=== PATIENT | female | born 1990 | race Caucasian/White ===

== ENCOUNTER → 2022-12-21 13:36 | Outpatient (CLI) | payer OTHER, SELFPAY ==
--- NOTE | ~2022-12-21 | US_ITS ---
EXAMINATION: US OB <= 14 weeks fetus INDICATION: N91.0 - Primary amenorrhea TECHNIQUE: Sonography of the pelvis was performed by transabdominal techniques. COMPARISON: None. RESULT: Uterus: 10.1 x 5.7 x 5.6 cm. Anteverted. Homogenous myometrium. Intrauterine gestational sac: Single present. Yolk sac: Present, not directly measured. Embryo: Single present. [place] rump length: 2.1 cm, corresponding gestational age 8 weeks, 5 days. G estational heart rate: 176 bpm. Subgestational hematoma: Absent . Right ovary: Not visualized . No adnexal mass. Left ovary: Not visualized . No adnexal mass. Pelvis free fluid: None. IMPRESSION: Single, live intrauterine gestation. Estimated Gestational Age: 8 weeks, 5 days by crown rump length. CYRUS by ultrasound 07/28/2023. Reviewed, dictated and finalized at location K. IMPRESSION: Single, live intrauterine gestation. Estimated Gestational Age: 8 weeks, 5 days by crown rump length. CYRUS by ultras ound 07/28/2023.
== END ==
PROVIDERS: PCP Internal Medicine; Visit Provider Registered Nurse
DX: Z34.91 Encounter for supervision of normal pregnancy, unspecified, first trimester (principal); Z3A.08 8 weeks gestation of pregnancy
CPT/HCPCS: 76801

== ENCOUNTER 2023-07-14 20:41 | Outpatient (CLI) | payer OTHER, SELFPAY ==
[2023-07-14 20:54] VITALS: BP 130/87; PULSE 78
[2023-07-14 21:01] VITALS: BP 135/76; PULSE 68
[2023-07-14 21:14] VITALS: BP 130/87; PULSE 75
== END 2023-07-14 21:20 | disposition home or self-care (01) ==
LOC: ANHOBOP 20:45 → ANHLDR 20:45
PROVIDERS: PCP Internal Medicine; Visit Provider Obstetrics & Gynecology
DX: O36.8190 Decreased fetal movements, unspecified trimester, not applicable or unspecified (principal); Z3A.00 Weeks of gestation of pregnancy not specified
CPT/HCPCS: 59025; 99199

== ENCOUNTER 2023-07-28 21:40 | Inpatient (IN) | payer OTHER, SELFPAY ==
[2023-07-29] VITALS (199 sets, daily range): BP systolic 90–158; BP diastolic 38–106; PULSE 58–111; RESP 18; TEMP 36.6–37.7; O2SAT 85–100; BMI 37.8
--- NOTE | 2023-07-29 00:43 | OBADM ---
This patient, Alana Marquez, admitted to the OB room Labor/Delivery/Recovery 105 for observation. Patient/family oriented to hospital policies and general routines including ID bracelet, bed and alarms, visiting hours, pain management, procedures, bathroom and other care routines, personal items, smoking policy, room service/diet, and visiting hours. Patient/Family are encouraged to report perceived risks to care and to ask questions if they do not understand what they are told or what they should do.
--- NOTE | 2023-07-29 04:02 | LDADM ---
This patient, Alana Marquez, was admitted to Labor/Delivery/Recovery 105 on 07/28/23 at 21:40. Plans for labor, pain management and were discussed with patient. Patient/family oriented to hospital policies and general routines including ID bracelet, bed and alarms, visiting hours, pain management, procedures, bathroom and other care routines, personal items, smoking policy, room service/diet and guest tray routines, security routines, and visiting hours. Patient/Family are encouraged to report perceived risks to care and to ask questions if they do not understand what they are told or what they should do. See OBIX for further documentation.
[2023-07-29] MEDS: LACTATED RINGERS 1,000 ML 125 ML IV CONT ×3 (04:15→10:32)
[2023-07-29] MEDS: AMPICILLIN 2 GM/NS 100 ML 2 GM/100 ML BAG IVPB (04:22)
[2023-07-29 04:39] LABS: Basophils Absolute Auto 0.1 K/mm3 (0.0-0.1); Basophils Percent Auto 0.3 % (0.2-1.2); Eosinophils Percent Auto 0.1 % (0-4.4); Hemoglobin 14.4 g/dL (12.0-15.0); Immature Granulocyte Absolute 0.09 K/mm3 (0.00-0.031); Immature Granulocyte Percent A 0.5 % (0-0.5); Lymphocytes Absolute Auto 2.01 K/mm3 (0.9-3.2); Lymphocytes Percent Auto 11.4 % (18.3-44.2); Mean Corpuscular HGB Conc 34.3 g/dl (32-36); Mean Corpuscular Hemoglobin 29.9 pg (26-34); Mean Corpuscular Volume 87.1 fl (80-100); Mean Platelet Volume 12.1 fl (7.4-10.4); Monocytes Absolute Auto 0.4 K/mm3 (0.1-0.6); Monocytes Percent Auto 2.4 % (2.6-8.5); Neutrophils Percent Auto 85.3 % (45.5-73.1); Platelet Count Result 247 k/mm3 (150-375); Red Blood Count 4.82 M/mm3 (4.2-5.4); Red Cell Distribution Width 13.1 % (11.5-14.5); White Blood Count 17.6 K/mm3 (4.5-10.0)
--- NOTE | 2023-07-29 05:01 | P.PNAN_ITS ---
Anes - Eval Pre Procedure Procedure: Labor epidural Date/Time: 07/29/23 05:01 Surgeon: Sourav Weber Preop Diagnosis: Abdominal pain with contractions Pre Op Diagnosis: Contractions Patient Data Age: 33 Gender: F Height: 1.63 m Weight: 100 kg Last Vital Signs Temp 98.1 F 07/29/23 02:01 Pulse 87 07/29/23 04:40 BP 138/106 H 07/29/23 04:40 Allergies Allergy/AdvReac Type Severity Reaction Status Date / Time No Known Allergies Allergy Verified 12/20/22 14:05 Home Medications Medication Instructions Recorded Confirmed Type ondansetron 4 mg disintegrating 4 mg PO Q8H 12/20/22 History tablet vitamins-iron fumarate 65 1 tablet PO DAILY 12/20/22 History mg iron-folic acid 1 mg tablet aspirin 81 mg tablet 81 mg PO DAILY 06/29/23 06/29/23 History : gestational age HCG: positive Patient hx anesthesia problems: none Family hx anesthesia problems: none Results Review: All pre-operative results and documents have been reviewed as part of the pre- operative evaluation. [facility] Past Medical History Medical History Amenorrhea, primary Obesity Seasonal allergies Surgical History Surgical History [place] teeth removed Family History Family History Grandparent Diabetes mellitus Father Hypertension Heart disease Thyroid disorder Social History Social History Smoking status: Never smoker Second hand tobacco smoke exposure: No Alcohol intake: former Substance use: never Substance use type: does not use Do You Feel Safe in your Home?: Yes Lack of Transportation: No Lack of Food: Never True Current Housing: I Have Housing Concerned About Future Housing: No Difficulty Paying Gas/Electric Bills: No Difficulty Paying for Meds: No Currently Unemployed: No Education: Master's Degree or Higher Difficulty w/ Childcare or Family Care: No Living arrangements: with family Occupation/Education: occupation Additional occupation/education comments: [employer] Gender identity (if verbalized by the patient): Female Sexual Orientation (if Verbalized by the Patient): Straight or Heterosexual Spiritual care concerns: No Exam Day of Procedure 07/29/23 05:01 Patient weight: obese Heart: regular rate and rhythm
[2023-07-29] MEDS: PHENYLEPHRINE 1,000 MCG/10 ML SYRINGE 100 MCG IV PUSH (06:20)
[2023-07-29] MEDS: ONDANSETRON INJ 4 MG/2 ML VIAL IV PUSH (06:57)
[2023-07-29] MEDS: AMPICILLIN 1 GM/NS 50 ML 1 GM/50 ML BAG IVPB ×2 (08:34→12:46)
--- NOTE | 2023-07-29 08:55 | PM.IMHP ---
H&P: HPI History of Present Illness Date/Time: 07/29/23 08:55 Chief Complaint: Contractions Narrative: 33 y/o G1 at 40 2/7 weeks who presented with contractions. Had SROM at 0400. Now comfortable with epidural. Receiving ampicillin for GBS colonization. Review of Systems Review of Systems: All systems reviewed & are unremarkable except as noted in HPI and below PMFSH Past Medical History Medical History Amenorrhea, primary Obesity Seasonal allergies Surgical History Surgical History [place] teeth removed Family History Family History Grandparent Diabetes mellitus Father Hypertension Heart disease Thyroid disorder Social History Social History Smoking status: Never smoker Second hand tobacco smoke exposure: No Alcohol intake: former Substance use: never Substance use type: does not use Do You Feel Safe in your Home?: Yes Lack of Transportation: No Lack of Food: Never True Current Housing: I Have Housing Concerned About Future Housing: No Difficulty Paying Gas/Electric Bills: No Difficulty Paying for Meds: No Currently Unemployed: No Education: Master's Degree or Higher Difficulty w/ Childcare or Family Care: No Living arrangements: with family Occupation/Education: occupation Additional occupation/education comments: [employer] Gender identity (if verbalized by the patient): Female Sexual Orientation (if Verbalized by the Patient): Straight or Heterosexual Spiritual care concerns: No Meds Home Medications and Allergies Home Medications Medication Instructions Recorded Confirmed Type ondansetron 4 mg disintegrating 4 mg PO Q8H 12/20/22 History tablet vitamins-iron fumarate 65 1 tablet PO DAILY 12/20/22 History mg iron-folic acid 1 mg tablet aspirin 81 mg tablet 81 mg PO DAILY 06/29/23 06/29/23 History Allergies Allergy/AdvReac Type Severity Reaction Status Date / Time No Known Allergies Allergy Verified 12/20/22 14:05 Vital Signs Vital Signs - 24 hr 07/29/23 02:01 07/29/23 04:40 07/29/23 05:02 Temperature 36.7 C Pulse Rate 79 87 Blood Pressure 141/75 H 138/106 H Pulse Oximetry 100 07/29/23 05:03 07/29/23 05:07 07/29/23 05:10 Temperature Pulse Rate 72 90 Blood Pressure 147/78 H 141/86 H Pulse Oximetry 100 07/29/23 05:12 07/29/23 05:13 07/29/23 05:16 Temperature Pulse Rate 85 87 Blood Pressure 137/87 158/76 H Pulse Oximetry 100 100 07/29/23 05:18 07/29/23 05:19 07/29/23 05:21 Temperature Pulse Rate 82 76 Blood Pressure 134/73 119/82 Pulse Oximetry 100 07/29/23 05:23 07/29/23 05:24 07/29/23 05:26 Temperature Pulse Rate 72 77 Blood Pressure 90/66 L 116/84 Pulse Oximetry 100 07/29/23 05:28 07/29/23 05:30 07/29/23 05:31 Temperature Pulse Rate 71 79 Blood Pressure 132/61 120/76 Pulse Oximetry 100 07/29/23 05:33 07/29/23 05:36 07/29/23 05:38 Temperature Pulse Rate 78 89 Blood Pressure 140/75 117/84 Pulse Oximetry 99 98 07/29/23 05:43 07/29/23 05:47 07/29/23 05:48 Temperature Pulse Rate 86 Blood Pressure 127/73 Pulse Oximetry 97 98 07/29/23 04:20 07/29/23 05:50 07/29/23 05:53 Temperature 36.6 C 36.6 C Pulse Rate Blood Pressure Pulse Oximetry 99 07/29/23 05:58 07/29/23 06:01 07/29/23 06:03 Temperature Pulse Rate 75 Blood Pressure 105/49 L Pulse Oximetry 95 99 07/29/23 06:08 07/29/23 06:13 07/29/23 06:16 Temperature Pulse Rate 85 Blood Pressure 91/44 L Pulse Oximetry 97 98 07/29/23 06:18 07/29/23 06:20 07/29/23 06:22 Temperature Pulse Rate 75 69 Blood Pressure 101/50 L 99/60 L Pulse Oximetry 100 07/29/23 06:23 07/29/23 06:28 07/28
[2023-07-29] MEDS: OXYTOCIN 30 UNITS/NS 500 ML 30 UNITS/500 ML BAG 6 UNITS IV CONT (09:21)
--- NOTE | 2023-07-29 12:37 | PM.OBPNLAB ---
Pain Control Date/time seen: 07/29/23 12:37 Comfortable with epidural. AVSS NST good variability. TOCO: contractions every 2-3 min Cervix 9/100/0 Continue labor.
--- NOTE | 2023-07-29 14:18 | P.PCNOB_ITS ---
OB - Vaginal Delivery Note Procedure Delivery date: 07/29/23 Events: Positive Group B Strep (GBS) Induction method: None Delivery augmentation: Pitocin Delivery monitor: External FHT, External Uterine and Internal Uterine Route of delivery: Episiotomy description: None Laceration Description: None Specimen: Yes (cord blood) Quantitative Blood Loss (ml): 120 Anesthesia type: Epidural Disposition: PACU Complications: None Narrative: 33 y/o G1 at 40 2/7 weeks gestation who presented to the hospital with contractions. She had SROM with clear fluid. She was given ampicillin for GBS colonization. She received an epidural. Oxytocin was administered intravenously for labor augmentation. Her labor progressed and her cervix dilated completely. She pushed with good effort and delivered the infant's head to the perineum, followed by the body. Meconium stained fluid followed the delivery. The nose and mouth were bulb suctioned. After a delay, the cord was clamped and cut. The was handed off the field. Cord blood was collected. The placenta delivered spontaneously and was grossly normal in appearance. The usual 3 vessel cord was noted. There were no lacerations. Needle and instrument counts were correct. The patient was taken to recovery room in stable condition. The infant went to the nursery in stable condition. I was present and scrubbed for the entire delivery. [place] Baby Date of : 07/29/23 Time of : 14:04 Weeks of gestation at delivery: 40 Infant gender: Female presentation: vertex position: Left Occiput Anterior Placenta delivery description: Spontaneous Cord Vessel Description: 3 Vessels score one minute: 8 score five minutes: 9
--- NOTE | 2023-07-29 14:22 | P.DS_ITS ---
DS: Admitting Diagnosis Discharge Date 07/31/23 Admitting Diagnosis IUP at 40 2/7 weeks Labor GBS colonization DS: Discharge Diagnosis Discharge Diagnosis (1) (normal spontaneous vaginal delivery): Code(s): O80 - Encounter for full-term uncomplicated delivery Status: Acute (2) GBS (group B Streptococcus carrier), +RV culture, currently : Code(s): O99.820 - Streptococcus B carrier state complicating Status: Acute OB - DS: Summary OB Procedures : None OB Procedures Intrapartum: Spontaneous Vag Delivery OB Procedures: : None Peripartum Data Laceration Description: None Episiotomy description: None Time Spent with Patient Time attestation: Total time spent providing and/or coordinating discharge services: Discharge Plan Discharge Attending physician on discharge: Yusuf Mathews Discharging Clinician: Yusuf Mathews Patient Disposition: Home, Self-Care Activity: pelvic rest Diet: regular Discharge Instructions: Call or return if temperature above 100.4? F, increased abdominal pain, increa sed vaginal bleeding or any new problems. Stand Alone Forms: General Discharge Information Follow-up/Referrals: Yusuf Mathews MD [Physician] - 6 Weeks Discharge Medications: New ibuprofen 600 mg tablet 600 mg PO Q6H PRN (Reason: cramps) Qty: 30 0RF Continued vit-iron fum-folic ac 65 mg iron- 1 mg tablet 1 tablet PO DAILY Discontinued ondansetron 4 mg tablet,disintegrating 4 mg PO Q8H Adult Low Dose Aspirin 81 mg Tablet 81 mg PO DAILY Date of admission: 07/28/23 21:40 Primary Care Provider: Petra,Shannen Admitting Provider: Vernon Silva Attending physician on admission: Vernon Silva Condition: Stable
[2023-07-29] MEDS: OXYTOCIN 30 UNITS/NS 500 ML 30 UNITS/500 ML BAG 125 UNITS IV CONT (14:32)
[2023-07-29 16:14] LABS: Rapid Plasma Reagin Non-Reactive (NonReactive)
--- NOTE | 2023-07-29 16:30 | PC.NURSE ---
Patient transferred to post room #280 per wheelchair from labor and delivery. Support person present. Oriented to unit, room, information board, rooming in, admission packet and security measures. Patient verbalizes understanding.
[2023-07-30 00:26] VITALS: BP 134/77; PULSE 67; RESP 18; TEMP 37.2; O2SAT 96
[2023-07-30 05:12] LABS: Hematocrit 37.5 % (37.0-47.0); Hemoglobin 12.1 g/dL (12.0-15.0)
[2023-07-30 07:40] VITALS: BP 115/77; PULSE 58; RESP 18; TEMP 36.6; O2SAT 97
[2023-07-30] MEDS: MULTIVIT/MIN/PREN/FOL AC/IRON TABLET 1 TAB PO (08:41)
[2023-07-30] MEDS: DOCUSATE SODIUM 100 MG CAPSULE PO (08:41)
[2023-07-30] MEDS: POLYSACCHARIDE IRON COMPLEX 150 MG CAPSULE PO (08:41)
--- NOTE | 2023-07-30 08:58 | PM.OBPNVD ---
OB - PN: Subj Subjective Date/time seen: 07/30/23 08:58 Narrative: Pain OK. OB - PN: Obj Data Labs 07/30/23 04:36 Labs: Laboratory Results - last 24 hr 07/29/23 07/30/23 15:02 04:36 Hgb 12.1 Hct 37.5 Blood Type AB Positive Antibody Screen Negative OB - PN A/P Plan Comments: A: PPD#1, doing well. P: Routine care. Exam Psych: Other: AVSS ABD soft, nontender, fundus firm EXT nontender
--- NOTE | 2023-07-30 09:46 | WPDANLDPN2 ---
Anes-Prog Note L&D Date/Time: 07/30/23 09:46 Comfortable throughout: labor and delivery Neuraxial method: epidural Epidural/Spinal procedure site: clean & non-tender Neuro status: Neuro function grossly intact. Cardiovascular status: normal Respiratory status: normal Airway patency: baseline Mental status: baseline Post-Op hydration status: normal Vital Signs: Last Vital Signs Temp 36.6 C 07/30/23 07:40 Pulse 58 L 07/30/23 07:40 Resp 18 07/30/23 07:40 BP 115/77 07/30/23 07:40 Pulse Ox 97 07/30/23 07:40 O2 Del Method Room Air 07/29/23 20:12 Pain score (VAS): 10 I/O: Intake & Output 07/29/23 07/30/23 07/30/23 23:59 07:59 15:59 Output Total 50 Balance -50 Post-procedural complaints: none Patient feedback: Patient satisfied with anesthetic care.
--- NOTE | 2023-07-30 10:48 | PC.NURSE ---
0945 Introductions were made, then consulted with patient to assess needs related to . Mother led the conversation with her?plans to feed?her and the?experience so far. Encouraged understanding of the benefits of skin to skin (demonstrating unwrapping infant and placing upright on her chest), stimulating with massage touch, changing positions to encourage wakefulness, how to watch for early feeding cues, responsive feeding, feeding on demand (aiming for 8-12 times in 24 hours, about every 2-3 hours), milk production, building/maintaining a milk supply, duration of feeding, signs of adequate intake/output and how to record on the feeding sheet. Mother works well with her with encouragement and education. Reviewed positioning and ear, shoulder, hip alignment, supporting the breast to facilitate a deep latch, asymmetrical latch (off-center), leading with the chin with a big, open, wide gape and body close to mother. Infant latched optimally to the both breasts in cross cradle position. Education given to the mother of how to visualize the suckling (with good rocking jaw motion), swallows (dropping of the lower jaw) and how to listen for drinking at the breast (the ka sound). Infant was able to maintain latch without pain to mother protecting the nipple with optimal positioning and latching. Reviewed comfort measures of healing with a warm, wet washcloth to rinse breast, then leave open to air-dry, good handwashing when or touching the breast/nipples to prevent infection. Mother voiced understanding of skin to skin, stimulating with massage touch, responsive feedings, hand expressed colostrum, talking to infant to encourage if it has been 2 -2.5 hours since the start of the last , to call if does not latch, or if there is discomfort with . Resources used for education were facilitated with the visual educational handouts/ tool/mom and baby guide, Resources provided with business card, feeding sheet, name written on the communication board, and the mom/baby guide. Parents voiced understanding of information, demonstrated learning and will call if there is a request for assistance. Reported to the Primary RN.
[2023-07-30 12:46] VITALS: BP 126/71; PULSE 58; RESP 16; TEMP 36.8; O2SAT 99
[2023-07-30 21:18] VITALS: BP 126/79; PULSE 62; RESP 16; TEMP 37; O2SAT 98
[2023-07-31 07:40] VITALS: BP 125/76; PULSE 60; RESP 16; TEMP 36.8; O2SAT 98
--- NOTE | 2023-07-31 08:57 | PM.OBPNVD ---
OB - PN: Subj Subjective Date/time seen: 07/31/23 08:57 Narrative: Pain OK. Would like to go home. OB - PN: Obj Data Labs 07/30/23 04:36 OB - PN A/P Plan Comments: A: PPD#2, doing well. P: Home to f/u 6 weeks. Exam Psych: Other: AVSS ABD soft, nontender, fundus firm EXT nontender
[2023-07-31] MEDS: MULTIVIT/MIN/PREN/FOL AC/IRON TABLET 1 TAB PO (09:34)
[2023-07-31] MEDS: DOCUSATE SODIUM 100 MG CAPSULE PO (09:37)
[2023-08-01 10:39] VITALS: BP 128/80; PULSE 60; RESP 18; TEMP 36.7; O2SAT 99
== END 2023-07-31 11:53 | disposition home or self-care (01) | DRG 807 ==
LOC: ANHLDR 07-29 14:34 → ANHOB2 07-31 09:55 → ANHLDR 08-01 07:57 → ANHOB2 08-01 07:57
PROVIDERS: Admitting Provider Obstetrics & Gynecology; PCP Internal Medicine; Visit Provider Obstetrics & Gynecology
DX: O99.824 Streptococcus B carrier state complicating childbirth (principal); Z37.0 Single live birth; O99.214 Obesity complicating childbirth; Z3A.40 40 weeks gestation of pregnancy
CPT/HCPCS: 36415; 85014; 85018; 85025; 86592; 86850; 86900; 86901; A9270; J0290; J2371; J2405; J2590; J2795; J7120

== ENCOUNTER 2024-12-10 13:14 | Outpatient (CLI) | payer OTHER, SELFPAY ==
--- NOTE | ~2024-12-10 | US_ITS ---
EXAMINATION: US OB <=14 wk fetus w TV DATE: 12/11/2024 17:01 CDT INDICATION: Amenorrhea COMPARISON: None TECHNIQUE: Real-time transabdominal obstetric ultrasound. FINDINGS: 2 para 1 Last menstrual period is given as 10/18/2024. Estimated date of delivery by last menstrual period is 07/25/2025 The uterus measures 11 x 6.1 x 6.1 cm. A gestational sac is identified within the uterus. Adjacent to the gestational sac is an irregular focus of decreased echogenicity measuring 22 x 10 x 1 8 mm consistent with a subchorionic hemorrhage for which short-term follow-up is needed. A pole is identified, with a crown-rump length that measures 1.6 cm, corresponding to an approx imate gestational age of 8 weeks and 0 days. cardiac activity is identified at a rate of 169 bpm. The right ovary is unremarkable in echogenicity and size measuring 3 x 1.9 x 1.8cm. Despite prolonged interrogation, the left ovary was not visualized Estimated date of delivery by ultrasound is 07/22/2025 IMPRESSION: Single intrauterine gestation with an approximate gestational age of 8 weeks and 0 days, with c ardiac activity identified. Small subchorionic hemorrhage is identified for which short-term follow-up is needed. Reviewed, dictated and finalized at location A. IMPRESSION: Single intrauterine gestation with an approximate gestational age of 8 weeks an d 0 days, with cardiac activity identified. Small subchorionic hemorrhage is identified for which short-term follow-up is n eeded.
== END 2024-12-10 13:15 | disposition home or self-care (01) ==
LOC: MICIMG 13:15
PROVIDERS: PCP Internal Medicine; Visit Provider Nurse Practitioner Obstetrics & Gynecology
DX: N91.2 Amenorrhea, unspecified (principal); Z3A.08 8 weeks gestation of pregnancy
CPT/HCPCS: 76801; 76817

== ENCOUNTER 2024-12-29 15:08 | Outpatient (CLI) | payer OTHER, SELFPAY ==
--- NOTE | ~2024-12-29 | US_ITS ---
EXAM/PROCEDURE: US OB transvaginal - 12/29/2024 15:12 CDT HISTORY: 34 years old Female with O36.80X0 - with inconclusive viability, n... COMPARISON: None available. TECHNIQUE: Multiple transvaginal images were obtained. FINdINGS: There is a single, intrauterine gestation without cardiac activity. The crown- rump length is 29 mm. There is no myometrial abnormality. The ovaries appear unremarkable. No significant free fluid is seen. IMPRESSION: Findings diagnostic of failure. Reviewed, dictated and finalized at location A.
== END 2024-12-29 15:09 | disposition home or self-care (01) ==
PROVIDERS: PCP Internal Medicine; Visit Provider Obstetrics & Gynecology
DX: O36.80X0 Pregnancy with inconclusive fetal viability, not applicable or unspecified (principal); Z3A.00 Weeks of gestation of pregnancy not specified
CPT/HCPCS: 76817

== ENCOUNTER 2024-12-30 08:15 | Day surgery (SDC) | payer OTHER, SELFPAY ==
--- OUTSIDE RECORDS SUMMARY | 2024-12-30 08:21 | XMS_ITS | Clinical Summary ---
Author Organization [facility] Address [address] [place] [address] Phone Care Team Providers Care Director Power Name Role Phone Unavailable Primary Care Provider Unavailabl e Allergies No known active allergies Medications APRI 0.15-0.03 mg TabletIndications: Well woman exam with routine gynecological exam,Screening for malignant neoplasm of cervix TAKE 1 TABLET BY MOUTH EVERY DAY 28 Tablet 5 8 Active Active Problems No known active problems Immunizations Immunization Administration Dates Next Due INFLUENZA VACCINE QUADRIVALENT 3 YR UP PF IM Influenza Seasonal Unspecified Formulation IM Family History Medical History Relation Name Comments Heart Disease Father Diabetes Maternal Grandfather Alzheimer's Disease Maternal Grandmother Diabetes Maternal Grandmother Parkinson's Disease Maternal Grandmother Healthy Mother Heart Disease Paternal Grandfather Diabetes Paternal Grandmother Asthma Sister Healthy Sister Breast Cancer Neg Hx Colon Cancer Neg Hx Ovarian Cancer Neg Hx Relation Name Status Comments Father Maternal Grandfather Alive Maternal Grandmother Mother Alive Paternal Grandfather Paternal Grandmother Alive Sister Alive Social History Tobacco Use Types Packs/Day Years Used Date Smoking Tobacco: Never Smokeless Tobacco: Never Alcohol Use Standard Drinks/Week Comments Yes 0 (1 standard drink = 0.6 oz pur e alcohol) socially Comments No Sex and Gender Information Value Date Recorded Sex Assigned at Not on file Legal Sex Female 7:05 PM CDT Gender Identity Not on file Sexual Orientation Not on file Last Filed Vital Signs Vital Sign Reading Time Taken Comments Blood Pressure 130/86 08/26/2017 1:43 PM CDT Pulse - - Temperature - - Respiratory Rate - - Oxygen Saturation - - Inhaled Oxygen Concentration - - Weight 82.9 kg (182 lb 12.8 oz) 08/26/2017 1:43 PM CDT Height 167.6 cm (5' 6) 08/26/2017 1:43 PM CDT Body Mass Index 29.5 08/26/2017 1:43 PM CDT Plan of Treatment Health Maintenance Due Date Last Done Comments HPV VACCINES (1 - 3-dose series) 2005 DTAP/TDAP/TD VACCINES (1 - Tdap) 2009 HEPATITIS B VACCINES (1 of 3 - 19+ 3-dose series) 2009 PAP SMEAR 08/26/2020 08/26/2017, 08/11, 06/13/2016, Additional history exists CERVICAL CANCER SCREENING 08/26/2022 HPV/Cotest (21-29) 08/26/2022 08/26/2017, 0 06/13/2016, 06/24/2015 HPV/Cotest (30-65) 08/26/2022 08/26/2017, 0 06/13/2016, 06/24/2015 INFLUENZA VACCINE (#1) 2024 02/13/2017, 2015 Procedures Procedure Name Priority Date/Time Associated Diagnosis Comments CERV/VAG CYTO SCREEN PAP RLFX HPV Routine 08/26/2017 1:41 PM CDT Well woman exam with routine gynecological exam Screening for malignant neoplasm of cervix from Last 3 Months or Most Recently Relevant to Health Maintenance Results * CERV/VAG CYTOPATH, THIN PREP IMAGR RFLX HPV (08/26/2017 1:41 PM CDT) CLINICAL INFORMATION SEE COMMENT 08/28/2017 2:47 PM CDT [facility] Comment:Oral contraceptives LAST MENSTRUAL PERIOD 08/11/17 08/28/2017 2:47 PM CDT [facility] PREV PAP: 06/13/16 NIL 08/28/2017 2:47 PM CDT [facility] PREV BX: SEE COMMENT 08/28/2017 2:47 PM CDT [facility] Comment:Information not prov ided SOURCE Endocervix 08/28/2017 2:47 PM CDT [facility] ADEQUACY: SEE COMMENT 08/28/2017 2:47 PM CDT [facility] Comment: Satisfactory for evaluation. Endocervical/transformation zone component present. PAP INTERP SEE COMMENT 08/28/2017 2:47 PM CDT [facility] Comment:Negative for intraep ithelial lesion or malignancy. COMMENT SEE COMMENT 08/28/2017 2:47 PM CDT [facility] Comment: This Pap test has been evaluated with computer assisted technology. EXPORT TRAFFIC DEPARTMENT MANAGER: SEE COMMENT 2017 2:47 PM CDT [facility] Comment: KMY, CT(ASCP) CT screening location: [place] [address] [place] [address] EXPLANATORY NOTE SEE COMMENT 018 2:47 PM CDT [facility] Comment: EXPLANATORY NOTE: The Pap is a screening test for cervical cancer. It is not a diagnostic test and is subject to false negative and false positive results. It is most reliable when a satisfactory sample, regularly obtained, is submitted with relevant clinical findings and history, and when the Pap result is evaluated along with historic and current clinical information. Genital SWAB OF ENDOCERVIX / Unknown Collection / Unknown 08/26/2017 1:41 PM CDT 08/26/2017 3:57 PM CDT Narrative [facility] - 08/28/2017 2:47 PM CDT Performing Organization Information: Site ID: SL Name: [facility] Address: [facility] [address] [place] [address] Director: Dorian Bass Jaja Mejias DO PATHOLOGY/CYTOLOGY ORDERABLES F inal Result [facility] from Last 3 Months or Most Recently Relevant to Health Maintenance Insurance BS BLUE ACCESS/TRUE BLUE PPO
[2024-12-30 08:55] VITALS: BP 115/66; PULSE 66; RESP 18; TEMP 37.3; O2SAT 98
--- NOTE | 2024-12-30 08:57 | P.HP_ITS ---
H&P: HPI History of Present Illness Date/Time: 12/30/24 08:57 Chief Complaint: Miscarriage Narrative: 34-year-old 2 para 1001 with LMP 10/18/2024, giving EDC 07/25/25, consistent with ultrasound exam in 8 weeks gestation. She was seen in the office on 12/28/2024 and heart tones were unable to be auscultated. Follow-up ultrasound exam yesterday shows single intrauterine gestation without cardiac activity, with crown-rump length only 29mm, less than would be expected. She has some pink spotting, but no overt bleeding. Nausea has decreased. Her blood type is AB-positive. We have reviewed the ultrasound exam findings and she is interested in surgical management. Review of Systems Review of Systems: All systems reviewed & are unremarkable except as noted in HPI and below PMFSH Past Medical History Medical History Obesity Amenorrhea, primary Seasonal allergies Surgical History Surgical History [place] teeth removed Family History Family History Grandparent Diabetes mellitus Father Hypertension Heart disease Thyroid disorder Social History Social History Smoking status: Never smoker Second hand tobacco smoke exposure: No Alcohol intake: former Substance use: never Substance use type: does not use Do You Feel Safe in your Home?: Yes Lack of Transportation: No Lack of Food: Never True Current Housing: I Have Housing Concerned About Future Housing: No Difficulty Paying Gas/Electric Bills: No Difficulty Paying for Meds: No Currently Unemployed: No Education: Master's Degree or Higher Difficulty w/ Childcare or Family Care: No Living arrangements: with family Occupation/Education: occupation Additional occupation/education comments: [employer] Gender identity (if verbalized by the patient): Female Sexual Orientation (if Verbalized by the Patient): Straight or Heterosexual Spiritual care concerns: No Meds Home Medications and Allergies Home Medications ?Medication ?Instructions ?Recorded ?Confirmed ?Type vitamins-iron fumarate 65 1 tablet PO DAILY 0 12/20/22 12/28/24 History mg iron-folic acid 1 mg tablet ondansetron 4 mg disintegrating 4 mg PO Q8H PRN nausea and 12/02/24 12/28/24 Rx tablet vomiting #30 tabs Allergies Allergy/AdvReac Type Severity Reaction Status Date / Time No Known Allergies Allergy Verified 12/30/24 08:59 Exam Const: Orientation/consciousness: patient oriented x3 Other: Well-developed, well-nourished female in no acute distress. Neck: Thyroid: thyroid normal Lymphatic: no lymphadenopathy noted (in neck, axilla or inguinal nodes) Resp: Effort & Inspection: normal respiratory effort Auscultation: clear to auscultation bilaterally Cardio: Rate: regular rate Rhythm: regular rhythm Heart sounds: S1 normal heart sound present and S2 normal heart sound present GI: Other: ABD: Soft, nontender, nondistended. No guarding or rebound tenderness. No hepatosplenomegaly. : General: Yes no CVA tenderness Other: External genitalia: normal female hair distribution, without lesion. Urethral meatus: no lesion, non prolapsed. Bladder: no mass, nontender Vagina: well-estrogenized, without lesion or discharge. No cystocele or rectocele. Cervix: no lesion or discharge. Uterus: small, anteverted, freely mobile, nontender Adnexa: no mass or tenderness. Anus/perineum: no lesions, nontender Back/Spine/Pelvis: Back: no CVA tenderness Skin: General skin exam: normal color and no rashes or lesions noted Neuro: General: patient oriented x3 Extrem: Other: Extremities: nontender with no edema Psych: Mental Status: mental status grossly normal Affect: normal affect Assessment and Plan Assessment and plan (1) Missed ab: Code(s): O02.1 - Missed Status: Acute Assessment and Plan: A: Missed SAB. P: We reviewed medical versus surgical management, and she prefers the latter. Specifically, I have offered her dilation and suction curettage.She understands risks of surgery to include risks of anesthesia, risks of pain, infection, bleeding, blood products, thromboembolic phenomena and damage to adjacent structures such as bowel, bladder, ureters, blood vessels and nerves. She understands all these risks and elects to proceed with surgery.
[2024-12-30 09:08] VITALS: BMI 37.1
--- NOTE | 2024-12-30 09:17 | WPDANESEPPF ---
Anes - Initial Pre Proc Eval Procedure: Operation Date: 12/30/24 10:15 Proposed Procedures p Suction Dilatation and Curettage - Yusuf Mathews MD Date/Time: 12/30/24 09:17 Surgeon: Yusuf Mathews MD Pre Op Diagnosis: missed AB Patient Data Age: 34 Gender: F Height: 1.63 m Weight: 98.1 kg Allergies Allergy/AdvReac Type Severity Reaction Status Date / Time No Known Allergies Allergy Verified 12/30/24 08:59 Home Medications ?Medication ?Instructions ?Recorded ?Confirmed ?Type vitamins-iron fumarate 65 1 tablet PO DAILY 12/20/22 12/30/24 History mg iron-folic acid 1 mg tablet ondansetron 4 mg disintegrating 4 mg PO Q8H PRN nausea and 12/02/24 12/30/24 Rx tablet vomiting #30 tabs Patient hx anesthesia problems: none Family hx anesthesia problems: none Results Review: All pre-operative results and documents have been reviewed as part of the pre-operative evaluation. [facility] Past Medical History Medical History Obesity Amenorrhea, primary Seasonal allergies Surgical History Surgical History [place] teeth removed Family History Family History Grandparent Diabetes mellitus Father Hypertension Heart disease Thyroid disorder Social History Social History Smoking status: Never smoker Second hand tobacco smoke exposure: No Alcohol intake: current Alcohol use details: SOCIALLY Substance use: never Substance use type: does not use Do You Feel Safe in your Home?: Yes Lack of Transportation: No Lack of Food: Never True Current Housing: I Have Housing Concerned About Future Housing: No Difficulty Paying Gas/Electric Bills: No Difficulty Paying for Meds: No Currently Unemployed: No Education: Master's Degree or Higher Difficulty w/ Childcare or Family Care: No Living arrangements: with family Occupation/Education: occupation Additional occupation/education comments: [employer] Gender identity (if verbalized by the patient): Female Sexual Orientation (if Verbalized by the Patient): Straight or Heterosexual Spiritual care concerns: No Anes - Eval Final PreProcedure Day of Procedure 12/30/24 09:17 Patient weight: obese Heart: regular rate and rhythm Lungs: clear to auscultation Airway: Mallampati scale class II Neurological: alert and oriented Last oral intake: >/= 8 hours ASA classification: II Emergent: no Anesthetic plan: proceed Anesthesia type and monitoring: general GIVS and standard monitoring Results Review: All pre-operative results and documents have been reviewed as part of the pre-operative evaluation. Informed Consent: The patient's anesthetic plan and its attendant risks and benefits were discussed with the patient/family/POA. Questions were solicited and answers provided to the satisfaction of the patient/family/POA.
[2024-12-30] MEDS: ACETAMINOPHEN 500 MG TABLET 1000 MG PO (09:25)
[2024-12-30] MEDS: LACTATED RINGERS 1,000 ML 30 ML IV CONT (09:30)
--- NOTE | 2024-12-30 10:03 | WPDHPUPDATE1 ---
History and Physical Update Update Date/Time: 12/30/24 10:03 History and Physical has been reviewed, including an updated exam of the patient. There are NO changes in the patient's condition. Risks, benefits, and alternatives have been discussed and questions answered. Patient agrees to proceed with procedure.
[2024-12-30] MEDS: LIDOCAINE 1% LOCAL INJ 10 ML VIAL INFILTRATE (10:28)
--- NOTE | 2024-12-30 10:31 | S_PTH ---
PATIENT: Alana Marquez LOC: [facility] U#:[id number] AGE/SX: 34/F ROOM: RE12/30/[address]: Yusuf Mathews MD : 1990 BED: DIS: 12/30/2024 SPEC #: [id number] RECD: 12/30/24 13:27 STATUS: OSCAR REAdriana #: [id number] NNEKA: 12/30/24 10:[address]: Yusuf Mathews DEPT: [facility] Surgical RECD BY: Marta Lock ENTERED: 12/30/24 13:27 SP TYPE: Surgical OTHR DR: Shannen Lambert, Tissues: A - Products of Conception Procedures: Hematoxylin and Eosin Stain Gross and Microscopic Level 4
[2024-12-30 10:45] VITALS: BP 122/62; PULSE 71; RESP 16; O2SAT 97
--- NOTE | 2024-12-30 10:45 | W.PM.PROC2 ---
Procedure Note - Detailed Date of Procedure 12/30/24 Pre-op Diagnosis missed AB Post-op Diagnosis Same Procedure Performed Dilation and sharp curettage Surgeon Yusuf Mathews MD Anesthesia MAC and Local (1% lidocaine) Findings Products of conception Description of Procedure The patient was taken to the operating room where she was prepared and draped in the usual sterile fashion in the dorsal lithotomy position. The bladder was drained with a red rubber catheter. A sterile speculum was placed into the vagina. The anterior lip of the cervix was grasped with a single-tooth tenaculum. Ten mL of 1% lidocaine was administered in a paracervical block. The cervix was gently dilated using Hegar dilators until an 8mm dilator could be passed. The 8mm curved tip suction curette was advanced. Suction curettage was performed and products of conception were aspirated. Sharp curettage was then performed until a good uterine cry was noted. A final pass with the suction curette was made. The tenaculum was removed. Hemostasis was excellent. Sponge, lap, needle and instrument counts were correct. The patient was taken to the recovery room in stable condition. I was present and scrubbed for the entire procedure. Implants None Estimated Blood Loss 100 Drains No Packing No Pathology Yes (Endometrial curettings) Complications None Condition Stable Disposition PACU [facility] Billing Surgery - Charge Forward: Surgery Billing
[2024-12-30 11:15] VITALS: BP 126/62; PULSE 60
[2024-12-30 11:25] VITALS: BP 123/68; PULSE 60
== END 2024-12-30 11:34 | disposition home or self-care (01) ==
PROVIDERS: PCP Internal Medicine; Visit Provider Obstetrics & Gynecology
PROC: (CPT 59820; principal; 2024-12-30 10:15)
DX: O02.1 Missed abortion (principal); G89.18 Other acute postprocedural pain; Z98.890 Other specified postprocedural states; Z82.49 Family history of ischemic heart disease and other diseases of the circulatory system
CPT/HCPCS: 59820; 36415; 85461; 86850; 86900; 86901; 88305; A9270; J2003; J2250; J2704; J3010; J7120